=== PATIENT | male | born 1980 | race African-American/Black ===

== ENCOUNTER → 2024-11-30 09:16 | Emergency (ER) | payer OTHER, SELFPAY ==
[2024-11-30 09:18] VITALS: BP 152/88
[2024-11-30 09:44] LABS: COVID-19 Antigen Negative (Negative)
--- NOTE | 2024-11-30 09:47 | ED.GENMED ---
History of Present Illness
General
Chief Complaint: Cold/Flu/URI Symptoms
Source: patient
Exam Limitations: none
Time Seen by Provider: 11/30/24 09:46
Nursing documentation reviewed up to this point in time: agreed with
History of Present Illness
History of Present Illness:
Patient is a 44-year-old male with history of HIV(levels undetectable) presents to the ER for evaluation. Patient has had fatigue chills nasal congestion and fever since last week.
Patient does not have a family doctor. He reports he has an HIV specialist but has not been able to see a family doctor. He denies any shortness of breath abdominal pain. No other complaints.
Past History
Past History
ED Past Medical History: Psychiatric (Bipolar/depression) and Other (HIV positive)
ED Past Surgical History: None
Social History
Tobacco: Non-smoker
Alcohol: Occasional
Drug: None
Personal: Single
Living: with family
Employment: Employed
Family History
Family History: Other (Noncontributory)
Review of Systems
Review of Systems
All Other Systems: ROS reviewed and negative except as documented in HPI and ROS
Constitutional: Reports fever, fatigue and chills
EENT: Reports other (Nasal congestion)
Respiratory: Reports no symptoms
Cardiac: Reports no symptoms
ABD/GI: Reports no symptoms
Musculoskeletal: Reports no symptoms
Skin: Reports no symptoms
Neurological: Reports no symptoms
Hematologic/Lymphatic: Reports no symptoms
Psychiatric: Reports no symptoms
Phy Exam
General Physical Exam
General Presentation: no apparent distress
General age: appears stated age
General Skin: warm and dry
General Habitus: normal
General Mental: alert
General Hydration: appears well hydrated
ENT Exam
ENT Exam: EOMI, pharynx normal and neck supple
Cardiovascular Exam
Cardiovascular Exam: regular rate/rhythm, no murmur and normal peripheral pulses
Pulmonary Exam
Pulmonary Exam: lungs clear and no respiratory distress
Neurological Exam
Neurological Exam: alert and oriented x3
Musculoskeletal Exam
Musculoskeletal Exam: full ROM
Skin Exam
Skin Exam: normal color and warm/dry
Psychiatric Exam
Psychiatric Exam: normal mood/affect
Course
Orders/Labs/Results
Orders:
Orders
11/30/24 09:22
COVID-19 Antigen Urgent
Source: Nasal Swab
INF RAPID [Influenza A+B Rapid Molecular] Urgent
LOUIE Source: Nasal Swab
Specimen Description:
Vital Signs
Initial and Last Documented VS:
Initial Vital Signs
Temp Pulse Resp BP Pulse Ox
99.3 F 61 18 152/88 98
11/30/24 09:18 11/30/24 09:18 11/30/24 09:18 11/30/24 09:18 11/30/24 09:18
Last Documented Vital Signs
Temp Pulse Resp BP Pulse Ox
99.3 F 61 18 152/88 98
11/30/24 09:18 11/30/24 09:18 11/30/24 09:18 11/30/24 09:18 11/30/24 09:18
MDM/Problems Addressed
Differential Diagnosis Includes:
Not limited to influenza, COVID, viral syndrome
MDM/Problems Addressed:
Patient is well-appearing in no acute distress patient was found to be flu be positive here. He does have a history of HIV but levels are undetectable and does have HIV specialist with whom he follows up with. He is nonhypoxic lungs are clear
nontachycardic no acute distress and well-appearing. Symptoms have been for over a week we will hold off on Tamiflu
Will DC with supportive care.
*Critical Care Note
Total Time (30-74mins, 75-104mins- exclusive of procedures): Not Applicable
ED Attending Note
-
Portions of this chart may have been created with voice recognition software.� Occasional wrong word or��sound alike� substitutions may have occurred due to the inherent limitations of voice recognition software.
Discharge Plan
Departure
Patient Disposition: Home (Routine Discharge)
Date of Disposition: 11/30/24
Time of Disposition: 10:00
Patient with high blood pressure during this ER visit?: Yes
Condition: Fair
Covid-19: Not Applicable
Discharge Problem:
Influenza B
Instructions: Fever, Adult (DC), Flu in adults - Discharge instructions, BLOOD PRESSURE
Prescriptions:
No Action
ugijmqggw-glmvdgsx-gqszhnz ala [Biktarvy] 1 EACH tablet
1 ea PO DAILY
Patient Comments:
take at dinner time with food
sumatriptan succinate 50 MG tablet
50 mg PO BID PRN (Reason: headache)
Referrals:
[facility] [Provider Group]
[facility] [Outside]
Stand Alone Forms: Return to Work
Activity Restrictions/Additional Instructions:
As discussed be sure to get plenty of rest and stay well-hydrated. You may alternate between Tylenol and ibuprofen for fever chills body aches.
You may follow-up with family practice clinic as needed for reevaluation.
return if any worsening of symptoms.
Interventions
Interventions:
*Risk Screen - Suicide Last Done: 11/30/24 09:18
*General Assessment Last Done: 11/30/24 09:18
*Neglect/Abuse Screening Last Done: 11/30/24 09:18
*ED- Fall Risk Assessment Last Done: 11/30/24 09:18
*ED COVID-19 Vaccine History Last Done: 11/30/24 09:18
Discharge Date and Time
Print Language: [place]
== END | disposition home or self-care (01) ==
LOC: EMR 09:16
PROVIDERS: EMERGENCY PHYSICIAN Emergency Medicine; FAMILY PHYSICIAN Internal Medicine
DX: J10.1 Influenza due to other identified influenza virus with other respiratory manifestations (principal); F31.9 Bipolar disorder, unspecified; Z21 Asymptomatic human immunodeficiency virus [HIV] infection status
CPT/HCPCS: 99282; 87502; 87811